=== PATIENT | female | born 1985 ===

== ENCOUNTER 2021-05-10 16:22 | Inpatient (IN) | payer SELFPAY ==
[2021-05-10] VITALS (23 sets, daily range): BP systolic 99–154; BP diastolic 51–87; PULSE 62–104; TEMP 97.6–98.9
[~2021-05-10] VITALS: Ht 157.5 cm; Wt 81.8 kg
[2021-05-10 17:25] LABS: BASO % 0.3 % (0.0-2.0); EOS # 0.2 K/mm3 (0.0-0.7); EOS % 1.9 % (0-4.0); GRAN # 5.2 K/mm3 (1.4-6.5); GRAN % 60.8 % (42.2-75.2); HEMATOCRIT 39.4 % (37.0-47.0); HEMOGLOBIN 13.4 g/dl (12.5-16.0); LYMPH # 2.7 K/mm3 (1.2-3.4); LYMPH % 30.7 % (20.0-51.0); MEAN CELL VOLUME 84 fl (80.0-100.0); MEAN CORPUSCULAR HEMOGLOBIN 29 pg (27.0-31.0); MEAN CORPUSCULAR HGB CONC 34 g/dl (33.0-37.0); MEAN PLATELET VOLUME 11.1 fl (7.4-10.4); MONO # 0.5 K/mm3 (0.1-0.6); PLATELET COUNT 270 K/mm3 (130-400); RED BLOOD COUNT 4.68 M/mm3 (4.10-5.30); REDCELL DISTRIBUTION WIDTH-CV 13.2 % (11.5-14.5)
--- NOTE | 2021-05-10 17:46 | NUR ---
1995 PATIENT HERE FROM HOME WITH COMPLAINTS OF LARGE GUSH OF FLUID THIS AM AT 6, AND HAS CONTINUED TO LEAK THROUGHOUT DAY. PATIENT SPEAKS MINIMAL BHUTANESE BUT IS AT BEDSIDE. INTRUPTS FOR PATIENT. EFM ON FHT 125/ BABY VERY ACTIVE. CONTRACTIONS IRREGULAR BUT PALPATE FIRM. SVE /-3 LARGE AMOUNT OF CLEAR FLUID NOTED AND AMNIOTRACE IS POSITIVE. DR HURTADO CALLED AND UPDATED ON ALL ABOVE INFORMATION. ORDERS TO ADMIT FOR LABOR AND START PENICILLION PER PROTOCOL FOR GBS [facility], 1928–1983.
[2021-05-10] MEDS ORDERED: NEXIUM 20MG20 MG (17:52)
--- NOTE | 2021-05-10 18:35 | NUR ---
Up to bathroom.
--- NOTE | 2021-05-10 18:42 | NUR ---
Back to bed in WR. 1849 To , pt requests head of bed lowered. Pt tense with contracions, clenches fists and jaw. Encouraged deep breathing. attentive @ bedside, translates.
--- NOTE | 2021-05-10 19:35 | NUR ---
FHT'S tracing maternal heart rate while pt sitting on edge of bed.
--- NOTE | 2021-05-10 19:35 | NUR ---
[employer] into room for epidural placement. Pt moved to edge of for placement. translating, pt calm.
--- NOTE | 2021-05-10 20:15 | NUR ---
Pt's translates. Pt asks "how long do we stay in the hospital?" Brief discussion of GBS, baby, goals to meet prior to discharge, , colostrum, and blood sugars.Questions invited and answered.
--- NOTE | 2021-05-10 20:15 | NUR ---
FHT's difficult to maintain tracing, =audible movements.
--- NOTE | 2021-05-10 20:46 | NUR ---
FHT'S not maintaining tracing, monitors adj.
--- NOTE | 2021-05-10 21:45 | NUR ---
FHT's with recurrent early decelerations, increasing time returning to baseline. PT to WL.FHT's to 90's brief return to baseline 120's-130's before onset of next contractions deceleration back down to 80's-90's @2146. To WR. FHT's continue 80's-90's. SVE unchanged, no cord noted. 2149 SF FHT's 140-150 with onset of deceleration traced at begining of contraction. [address] FSE, not tracing, FSE off. 2156 New FSE placed, records briefly, 130-140 then artifact, then no tracing. FSE intact, leg plate secure, FSE cord replaced. FHT's 150's with decelerations noted to 110's with contraction.
--- NOTE | 2021-05-10 22:05 | NUR ---
Pitocin to [address] Masterson's prder. 2208 FHT's with late deceleration to 110's , returns to barline after contraction ends. Total decel time 50 seconds. 2210 FHT's baseline 145 starts deceleration with onset of contraction, to WR. FHT's return to baseline after ctx ends. Total onset to baseline 90 seconds. 2214 FHT's deceleration to 110's between ctx. To LL, Pticon gtt off, Lr to bolus.
--- NOTE | 2021-05-10 22:31 | NUR ---
Dr Masterson @ bedside, explains to pt and spouse need for C/S, pt tearful asking questions interprets. 2238 Off minitor to C/S room.
--- NOTE | 2021-05-10 23:55 | NUR ---
Quarter sized drainage noted on lower R edge of dressing, not soaked through. FF
[2021-05-11] VITALS (15 sets, daily range): BP systolic 98–128; BP diastolic 56–82; PULSE 46–93; TEMP 97.7–98.6
--- NOTE | 2021-05-11 00:50 | NUR ---
0050 EPID CATH REMOVED. PERICARE DONE. ABD BINDER APPLIED. IV CONTS TO INFUSE. SHEPARD PATENT
--- NOTE | 2021-05-11 08:35 | NUR ---
0800 ASSESSMENT COMPLETED AND BS 53. BABY TO PARENTS. ATTEMPT TO BREASTFEED. BABY WILL LATCH BUT NOT SUCK. 12 CC SIMILAC GIVEN WITH ENCOURAGMENT. BBAY SKIN TO SKIN AFTER.
--- NOTE | 2021-05-11 09:42 | NUR ---
Initial visit attempt; Physician with patient. Cuff Folder left card of congratulations for the of her daughter and information regarding the availability of spiritual care at our hospital.
--- NOTE | 2021-05-11 19:00 | NUR ---
Evening/night plan of care reviewed with pt. Sister in law at bedside translates. Pt reports cramping with pumping and . Explained that it is a good thing and that it helps uterus contract down to pre-pegnancy size. Pt asks if she needs to massage it herself. I explained that her body will do it on it's own.
[2021-05-12 08:40] VITALS: BP 121/72; PULSE 97; TEMP 97.9
[2021-05-12 17:15] VITALS: BP 116/69; PULSE 89; TEMP 98.3
[2021-05-12 19:31] VITALS: BP 120/85; PULSE 90; TEMP 98.2
[2021-05-13 08:00] VITALS: BP 127/89; PULSE 88; TEMP 98.1
[2021-05-13] MEDS ORDERED: MOTRIN 800800 MG/TAB PO (08:25)
[2021-05-13] MEDS ORDERED: PERCOCET 325 MG1 TA2 PO (08:25)
== END 2021-05-13 15:15 | disposition home or self-care (01) | DRG 788 ==
LOC: LDRO 16:22 → LDR 16:45 → OB 16:45
PROVIDERS: Obstetrics & Gynecology; ADMIT Obstetrics & Gynecology
PROC: 10D00Z1 Extraction of Products of Conception, Low, Open Approach (ICD-10-PCS; principal; 2021-05-10)
DX: O60.14X0 Preterm labor third trimester with preterm delivery third trimester, not applicable or unspecified (principal); O76 Abnormality in fetal heart rate and rhythm complicating labor and delivery; O90.81 Anemia of the puerperium; D64.9 Anemia, unspecified; O99.62 Diseases of the digestive system complicating childbirth; K21.9 Gastro-esophageal reflux disease without esophagitis; O99.344 Other mental disorders complicating childbirth; F41.9 Anxiety disorder, unspecified; Z3A.35 35 weeks gestation of pregnancy; Z37.0 Single live birth
CPT/HCPCS: J0690; J1100; J1885; J2405; J2540; J2590; J7120